=== PATIENT | male | born 1970 | race Caucasian/White ===

== ENCOUNTER 2017-01-06 15:36 | Emergency (ER) | payer OTHER ==
[~2017-01-06] VITALS: Ht 177.8 cm; Wt 84.8 kg
[~2017-01-06 15:36] MED LIST: ASCORBIC ACID100 MG PO; CHANTIX1 MG PO; CLARITIN,ALAVAR10 MG PO; DAILY VALUE1 EACH PO; DELTASONE20 M1 PO; DIFLUCAN100 MG PO; EFFEXOR XR37.5 MG PO; EFFEXOR37.5 MG PO; HYDROMORPHONE HC4 MG PO; MARINOL2.5 M1 PO; MICRO-K10 ME2 PO; MOTRIN800 MG PO; NEULASTA6 MG/0.6 M SC; NORCO 7.5/321 TABLET PO; OXAYDO5 MG PO; OXYCODONE HCL10 MG PO; PERCOCET 10/1 TABLET PO; PERCOCET 5/31 TABLET PO; POTASSIUM CHLO10 ME3 PO; PRILOSEC40 MG PO; VENLAFAXINE HC100 MG PO; VITAMIN B12-FO1 EACH PO; WELLBUTRIN100 MG PO; ZENPEP DR 5,001 EACH PO
[2017-01-06 17:21] LABS: HEMATOCRIT 35.3 % (38.0-50.0); MCH 28.4 PG (29.0-34.0); MCV 88.7 FL (86-99); MEAN PLAT.VOLUME 9.3 uM^3 (9.0-12.4); RBC DIS.WIDTH-CV 18.7 % (11.8-14.6); RBC DIS.WIDTH-SD 60.5 % (39-53); RED BLOOD COUNT 3.98 M/uL (4.00-5.50); WHITE BLOOD COUNT 8.4 K/uL (4.1-10.2)
[2017-01-06 17:34] LABS: CHLORIDE 102 mEq/L (99-109); POTASSIUM 3.8 mEq/L (3.7-5.4); SODIUM 137 mEq/L (136-147)
[2017-01-06 17:36] LABS: GLUCOSE 173 mg/dL (70-99)
[2017-01-06 17:38] LABS: ANION GAP 11 MEQ/L (2-14)
[2017-01-06 17:40] LABS: GFR ESTIMATE (CALCULATED) > 59 mL/min/
[2017-01-06 17:41] LABS: UREA NITROGEN (BUN) 8 mg/dL (9-23)
[2017-01-06 18:06] LABS: PROTHROMBIN TIME 10.5 (9.2-11.2); PTT 27.3 (25-32)
[2017-01-06 18:26] LABS: TYPE OF FLUID PLEURAL
[2017-01-06 18:55] LABS: BODY FLUID RBC'S 202500 /MM^3 (0-100); RED CELL AREA COUNTED 0.4; RED CELL DILUTION 5
[2017-01-06 19:14] LABS: BODY FLUID EOSINOPHILS 0 % (0-25); BODY FLUID PROTEIN 4.7 G/DL; MONO RAW COUNT 39; MONONUCLEAR WBC'S 39 %; POLY RAW COUNT 61; POLYNUCLEAR WBC'S 61 % (0-25)
[2017-01-06 19:15] LABS: BODY FLUID LDH 2337 IU/L
[2017-01-06 19:16] LABS: BODY FLUID WBC'S 56 /MM^3 (0-500); WBC AREA COUNTED 18; WBC DILUTION 5; WHITE CELL RAW COUNT 20
[2017-01-06 19:19] LABS: PLATELET COUNT 315 K/uL (156-360)
[2017-01-06 19:29] LABS: PLAT.SUFFICIENCY ADEQUATE
[2017-01-06 20:20] VITALS: BP 167/112
[2017-01-09 02:44] LABS: BODY FLUID PH 7.6 (())
== END 2017-01-06 20:26 | disposition left against medical advice (07) ==
LOC: EME 15:36
PROVIDERS: Emergency Medicine
DX: J90 Pleural effusion, not elsewhere classified (principal); J93.83 Other pneumothorax; C25.9 Malignant neoplasm of pancreas, unspecified; C79.9 Secondary malignant neoplasm of unspecified site; F17.200 Nicotine dependence, unspecified, uncomplicated
CPT/HCPCS: 71010; 71020; 80048; 82945; 83615 91; 83986 90; 84157; 85027; 85610; 85730; 87070; 87075; 87116; 87205; 87206; 88108; 88305; 89051; 99281; 99284